=== PATIENT | female | born 1960 | race Hispanic/Latino ===

== ENCOUNTER 2021-09-28 13:12 | Emergency (ER) | payer OTHER ==
[~2021-09-28] VITALS: Ht 152.4 cm; Wt 63.5 kg
[2021-09-28] MEDS ORDERED: BACITRACIN 28.4 GM OINT TP ONE (14:00)
[2021-09-28] MEDS ORDERED: IBUPROFEN 600 MG TABLET PO ONE (14:00)
[2021-09-28] MEDS ORDERED: IBUP-2070 PO (14:12)
[2021-09-28 14:21] VITALS: BP 150/72
== END 2021-09-28 14:22 | disposition home or self-care (01) ==
LOC: EDH 13:12
DX: S00.83XA Contusion of other part of head, initial encounter (principal); Z79.1 Long term (current) use of non-steroidal anti-inflammatories (NSAID); Z88.8 Allergy status to other drugs, medicaments and biological substances; W01.0XXA Fall on same level from slipping, tripping and stumbling without subsequent striking against object, initial encounter; Y93.89 Activity, other specified; Y92.89 Other specified places as the place of occurrence of the external cause; Y99.8 Other external cause status

== ENCOUNTER 2022-10-01 16:03 | Emergency (ER) | payer OTHER ==
[~2022-10-01] VITALS: Ht 160 cm; Wt 72.1 kg
[~2022-10-01 16:03] MED LIST: IBUP-2070 PO
[2022-10-01] MEDS ORDERED: DEXAMETHASONE SOD PHOSPHATE 4 MG/ML 1ML VIAL IM ONE (18:30)
[2022-10-01] MEDS ORDERED: CEFTRIAXONE 1G VIAL IM ONE (18:30)
[2022-10-01 18:36] VITALS: BP 122/72
[2022-10-01] MEDS ORDERED: IBUP-2070 PO (18:47)
[2022-10-01] MEDS ORDERED: PSEU120T62 PO (18:47)
[2022-10-01] MEDS ORDERED: AZIT250T9 PO (18:47)
[2022-10-01] MEDS ORDERED: FLUT16H NASAL (18:47)
== END 2022-10-01 18:51 | disposition home or self-care (01) ==
LOC: EDH 16:03
DX: J01.90 Acute sinusitis, unspecified (principal); H11.32 Conjunctival hemorrhage, left eye; H65.93 Unspecified nonsuppurative otitis media, bilateral; Z91.013 Allergy to seafood; Z88.8 Allergy status to other drugs, medicaments and biological substances
CPT/HCPCS: 99284; 96372 ×2; J1100; J0696